=== PATIENT | male | born 1980 | race Caucasian/White ===

== ENCOUNTER 2022-10-12 09:25 | Emergency (ER) | payer OTHER ==
[~2022-10-12] VITALS: Ht 182.9 cm; Wt 102.1 kg
--- NOTE | 2022-10-12 09:35 | NUR ---
PT CAME INTO ER FOR LOWER BACK PAIN AFTER MOVING BRICKS X 1 HOUR. 10/10 PAIN SCALE.
[2022-10-12] MEDS ORDERED: MORPHINE SULFATE INJ 4 MG/ML DISP.SYRIN ONE (09:55)
[2022-10-12] MEDS ORDERED: KETOROLAC TROMETHAMINE INJ 30 MG/ML VIAL ONE (09:55)
[2022-10-12] MEDS ORDERED: MORPHINE SULFATE INJ 2 MG/ML DISP.SYRIN IM ONE (10:00)
[2022-10-12] MEDS ORDERED: KETOROLAC TROMETHAMINE INJ 60 MG/2 ML VIAL IM ONE (10:00)
[2022-10-12] MEDS ORDERED: CARI350T PO (10:50)
[2022-10-12] MEDS ORDERED: HYDR-4303 PO (10:50)
--- NOTE | 2022-10-12 11:15 | NUR ---
Patient discharged to home in stable condition. Written and verbal after care instructions given. Patient verbalizes understanding of instruction.
[2022-10-12 11:19] VITALS: BP 130/71
== END 2022-10-12 11:19 | disposition home or self-care (01) ==
LOC: ER 09:25
DX: M54.50 Low back pain, unspecified (principal); Z79.899 Other long term (current) drug therapy
CPT/HCPCS: 99284; 96372 ×2; J2270; J1885